=== PATIENT | male | born 1940 | race Caucasian/White ===

== ENCOUNTER 2020-10-19 07:28 | Outpatient (CLI) | payer MEDICARE, OTHER, SELFPAY ==
[2020-10-19 07:29] VITALS: BMI 39.2
--- NOTE | 2020-10-19 07:33 | NMCV_ITS ---
NM cici perf SPECT r/s* [id number] Amadou Stoddard Age: 80 Gender: M : 1940 Exam Date: 10/19/2020 08:07 Ordering Phys: Rolf Anton M.D ([email or web address]) Technologist: ERLIN Barakat Exam Location: [facility] Indications: CARDIAC MURMUR STRESS TEST Please see separate stress test report in [facility] for full findings IMAGE PROTOCOL Rest/Stress 1 Lexiscan Day Radiopharmaceutical Dose (mCi) Administration Site Administered by Rest: Tc-99m 10.6 IV ERLIN Barakat Sestamibi Stress:Tc-99m 32.9 IV ERLIN Flower Sestamibi Rest: 19-Oct-2020 60 Discovery 630 Stress: 19-Oct-2020 30 Discovery 630 0.4mg Lexiscan. Supine position only as patient was unable to lay prone. SPECT RESULTS Technical Quality: Excellent Raw Data Analysis: Normal Image Corrections: No attenuation or motion correction applied Summed Stress Score: 4 Summed Rest Score: 4 Summed Difference Score: 1 PERFUSION FINDINGS There is a small to medium sized mostly fixed perfusion defect in the apical lateral and apical inferior wall. 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 FUNCTIONAL RESULTS (calculated via Gated SPECT) Stress Image LV EF (%): 70 Stress EDV (mL):150 TID: 0.87 Stress ESV (mL):45 FUNCTIONAL FINDINGS: There is normal left ventricular systolic function. IMPRESSIONS 1. 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 LV systolic function is normal Rolf Anton MD (Electronically Signed) Final Date: 19 October 2020 10:58 S
--- NOTE | 2020-10-19 07:33 | ECG_ITS ---
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 Interpretive Statements NAME OF STUDY: LEXISCAN SESTAMIBI STRESS TEST INDICATION: [Chest Pain, ] Procedure: At the baseline, the blood pressure was 173/64mmHg with a heart rate of 47 bpm. The electrocardiogram showed sinus bradycardia, normal axis with normal ST and T's. The Lexiscan was infused over a period of 20 seconds. A total of 0.4 mg of Lexiscan was infused. The stress phase was continued for a total of 5 minutes. Heart rate was at the end of stress phase was 48 bpm and a blood pressure of 174/66mmHg. The EKG at the peak infusion revealed since normal sinus rhythm with no significant ST-T wave changes. Sestamibi was injected 20 seconds after the Lexiscan infusion. Blood pressure at the end of recovery phase was 168/63 mmHg with a heart rate of 49 bpm. Conclusion: 1. Normal EKG response to Lexiscan infusion 2. No Lexiscan induced chest pain or cardiac arrhythmia. 3. Normal blood pressure and heart rate response. 4. Sestamibi/sestamibi perfusion scan pending; see separate report. Electronically Signed On 11-14-2020 12:33:23 CDT by Rolf Anton M.D. [email or web address]
[2020-10-19 08:42] VITALS: BP 175/69; PULSE 48
[2020-10-19] MEDS: regadenoson 0.4 Mg/5 ml Syringe IVP (08:42)
== END 2020-10-19 07:29 | disposition home or self-care (01) ==
PROVIDERS: PCP Registered Nurse; Visit Provider Internal Medicine
DX: R07.9 Chest pain, unspecified (principal); R06.02 Shortness of breath
CPT/HCPCS: 78452; 93017; A9500; J2785